=== PATIENT | female | born 1970 | race Caucasian/White ===

== ENCOUNTER → 2018-02-10 14:41 | Outpatient (CLI) | payer OTHER, SELFPAY ==
[2018-02-10 15:08] LABS: Basophils # 0.1 K/mm3 (0-0.2); Basophils % 0.7 % (0.1-2.0); Eosinophils # 0.1 K/mm3 (0.0-0.4); Eosinophils % 1.1 % (0.1-12.0); Hematocrit 50.3 % (37.0-47.0); Hemoglobin 16.4 g/dL (12.2-16.2); Lymphocytes # 2.3 K/mm3 (0.7-4.5); Lymphocytes % 24.7 K/mm3 (10-50); Mean Corpuscular HGB Conc 32.6 g/dL (31.8-35.4); Mean Corpuscular Hemoglobin 33.6 pg (27.0-31.2); Mean Corpuscular Volume 103.1 fl (81-99); Mean Platelet Volume 8.6 fl (7.4-10.4); Monocytes # 0.7 K/mm3 (0.1-1.0); Monocytes % 7.2 % (1.7-9.3); Neutrophils # 6.1 K/mm3 (1.8-7.8); Neutrophils % 66.4 % (37.0-80.0); Platelet Count 162 K/mm3 (142-424); Red Blood Count 4.88 M/mm3 (4.20-5.40); Red Cell Distribution Width 13.2 % (11.5-17.5); White Blood Count 9.1 K/mm3 (4.8-10.8)
[2018-02-10 15:38] LABS: Alanine Aminotransferase 30 U/L (12-78); Albumin/Globulin Ratio 1.3 (1.1-1.8); Alkaline Phosphatase 78 U/L (46-116); Anion Gap 9.9 mEq/L (5-15); Aspartate Amino Transferase 22 U/L (15-37); Bilirubin,Total 0.6 mg/dL (0.2-1.0); Blood Urea Nitrogen 15 mg/dL (7-18); Calcium 8.7 mg/dL (8.5-10.1); Carbon Dioxide 29 mmol/L (21.0-32.0); Chloride 102 mmol/L (98-107); Creatinine,Serum 0.81 mg/dL (0.55-1.02); Estimated Glomerular Filt Rate 76 ml/min (>60); GFR (African American) 93 ML/MIN (>60); Glucose 88 mg/dL (74-106); Potassium 3.9 mmoL/L (3.5-5.1); Sodium 137 mmol/L (136-145)
[2018-02-12 10:15] LABS: Hep B Surface Ab, Qual Non Reactive (.); Hepatitis C Antibody <0.1 s/co ratio (0.0-0.9)
[2018-02-13 09:01] LABS: HIV Screen 4th Generation wRfx Non Reactive (Non Reactive)
== END ==
PROVIDERS: Visit Provider Preventive Medicine Addiction Medicine
DX: F19.21 Other psychoactive substance dependence, in remission (principal)
CPT/HCPCS: 36415; 80053; 80076; 85025; 86703; 86706; 87380; G0432

== ENCOUNTER 2020-12-16 10:02 | Observation (INO) | payer SELFPAY ==
[2020-12-16] VITALS (9 sets, daily range): BP systolic 149–210; BP diastolic 72–108; PULSE 54–88; RESP 9–24; TEMP 36.5–36.9; O2SAT 95–99; BMI 33.6; BMI 30.4
--- NOTE | 2020-12-16 10:17 | ECG_ITS ---
APPROVED REPORT Exam: Resting ECG HR:82 bpm ECG Measurements Heart Rate 82 AXES WV 148 P 48 QRSd 92 QRS 7 QT 368 T 99 QTc 429 Conclusion Normal sinus rhythm ST & T wave abnormality, consider lateral ischemia Abnormal ECG Electronically signed by : Kendrick Mathew MD 12/16/2020 21:12:49
--- NOTE | 2020-12-16 10:21 | HMH.EDGENADL ---
ED Disposition Clinical Impression: Angina pectoris Hypertension Qualifiers: Hypertension type: unspecified Qualified Code(s): I10 - Essential (primary) hypertension Disposition: Admitted as Observation Condition on Discharge: Fair - Critical Care Critical Care Time: No Attestation: On 12/16/20, the high probability of a clinically significant, sudden or life threatening deterioration of the following system(s) required my full and direct attention, intervention and personal management. The time I documented below is in addition to time spent performing reported procedures but includes the following listed in this critical care notation. Medical Decision Making - Ronak Inquiry Pt receiving controlled substance: No Vital Signs: 12/16/20 10:04 12/16/20 10:31 12/16/20 10:46 Temperature 97.9 F Temperature Source Oral Pulse Rate 82 70 Pulse Rate [Left] 88 Respiratory Rate 18 11 L 11 L Blood Pressure 183/89 H Blood Pressure [Right Arm] 210/108 H Blood Pressure Mean 131 Blood Pressure Mean [Right Arm] 142 02 Sat by Pulse Oximetry 99 99 95 Oxygen Delivery Method Room Air - Lab Data Lab Results 12/16/20 10:18: WBC 6.2, RBC 5.58 H, Hgb 18.8 H, Hct 57.0 H, MCV 102.1 H, MCH 33.7 H, MCHC 33.0, RDW 12.5, Plt Count 153, MPV 8.7, Neut % (Auto) 63.0, Lymph % (Auto) 25.5, [place] % (Auto) 9.5 H, Eos % (Auto) 1.1, Baso % (Auto) 0.9, Neut # (Auto) 3.9, Lymph # (Auto) 1.6, [place] # (Auto) 0.6, Eos # (Auto) 0.1, Baso # (Auto) 0.1 12/16/20 10:18: Sodium 142, Potassium 3.8, Chloride 102, Carbon Dioxide 30, Anion Gap 13.8, BUN 23 H, Creatinine 0.90, Estimated Creat Clear 118, Estimated GFR 67, Est GFR ( Amer) 81, Glucose 140 H, Calcium 9.4, Total Bilirubin 1.1, AST 40 H, ALT 34, Alkaline Phosphatase 91, Troponin I < 0.01, Total Protein 8.3 H, Albumin 4.7, Globulin 3.6 H, Albumin/Globulin Ratio 1.3 12/16/20 12:15: SARS-CoV-2 (PCR) Not detected, Influenza A Untype (PCR) Not detected, Influenza Type B (PCR) Not detected Result diagrams: 12/16/20 10:18 12/16/20 10:18 Orders (Tests/Meds): ED MEDICATIONS Generic Name Dose Route Start Last Admin Trade Name Bill PRN Reason Stop Dose Admin Acetaminophen 650 mg 12/16/20 15:55 Acetaminophen 325mg Tab PO 01/15/21 15:54 Q4HP PRN Fever or Mild Pain Aspirin 81 mg 12/17/20 09:00 Aspirin Ec 81mg Tablet PO 01/16/21 08:59 DAILY SIDDHARTH Buprenorphine/Naloxone each 12/17/20 09:00 Buprenorphine/Naloxone 8mg/2mg Odt SL 01/16/21 08:59 DAILY SIDDHARTH Enoxaparin Sodium 100 mg 12/16/20 23:45 Enoxaparin 100mg/Ml Syringe 1 mg/kg (100 mg) 01/15/21 11:44 SQ Q12H SIDDHARTH Hydralazine HCl 5 mg 12/16/20 15:55 Hydralazine 20mg/Ml Vial IV 01/15/21 15:54 Q4HP PRN Blood Pressure - High Lisinopril 5 mg 12/17/20 09:00 Lisinopril 5mg Tablet PO 01/15/21 14:47 DAILY SIDDHARTH Metoprolol Tartrate 50 mg 12/16/20 21:00 Metoprolol Tartrate 50mg Tablet PO 01/15/21 11:44 BID SIDDHARTH Nitroglycerin 1 gm 12/16/20 17:45 Nitroglycerin 1 Gm Ointment TD 01/15/21 11:44 Q6H SIDDHARTH Ondansetron HCl 4 mg 12/16/20 15:55 Ondansetron 4mg/2ml Vial IV 01/15/21 15:54 Q8HP PRN Nausea Discontinued Medications Generic Name Dose Route Start Last Admin Trade Name Bill PRN Reason Stop Dose Admin Aspirin 324 mg 12/16/20 10:30 12/16/20 10:40 Aspirin 81mg Chewable Tablet PO 12/16/20 10:31 324 mg ONCE ONE Administration Enoxaparin Sodium 100 mg 12/16/20 11:45 12/16/20 11:55 Enoxaparin 100mg/Ml Syringe 1 mg/kg (100 mg) 01/15/21 11:44 100 mg SQ Administration Q12H SIDDHARTH Lisinopril 5 mg 12/16/20 14:48 12/16/20 15:57 Lisinopril 5mg Tablet PO 01/15/21 14:47 5 mg DAILY SIDDHARTH Administration Metoprolol Tartrate 5 mg 12/16/20 10:31 12/16/20 10:40 Metoprolol Tartrate 5mg/5ml Vial IV 12/16/20 10:32 5 mg ONCE ONE Administration Metoprolol Tartrate 50 mg 12/16/20 11:45 08
--- NOTE | 2020-12-16 10:31 | XR_ITS ---
PROCEDURE INFORMATION: Exam: XR Chest Exam date and time: 12/16/2020 10:31 AM Age: 50 years old Clinical indication: Sternal or substernal pain; Patient HX: Chest pain , high blood pressure , smoker TECHNIQUE: Imaging protocol: XR of the chest. Views: 1 view. COMPARISON: CR CXR CHEST(2 VIEWS-NOT PORTABLE) 02/01/2014 2:36 PM FINDINGS: Lungs: Unremarkable. No consolidation. Pleural spaces: Unremarkable. No pleural effusion. No pneumothorax. Heart/Mediastinum: Unremarkable. No cardiomegaly. Bones/joints: Unremarkable. IMPRESSION: No acute findings.
[2020-12-16 10:40] LABS: Basophils # 0.1 K/mm3 (0-0.2); Basophils % 0.9 % (0.1-2.0); Eosinophils # 0.1 K/mm3 (0.0-0.4); Eosinophils % 1.1 % (0.1-12.0); Lymphocytes # 1.6 K/mm3 (0.7-4.5); Lymphocytes % 25.5 % (10-50); Mean Corpuscular Hemoglobin 33.7 pg (27.0-31.2); Mean Corpuscular Volume 102.1 fl (81-99); Mean Platelet Volume 8.7 fl (7.4-10.4); Monocytes # 0.6 K/mm3 (0.1-1.0); Monocytes % 9.5 % (1.7-9.3); Neutrophils # 3.9 K/mm3 (1.8-7.8); Platelet Count 153 K/mm3 (142-424); Red Blood Count 5.58 M/mm3 (4.20-5.40); Red Cell Distribution Width 12.5 % (11.5-17.5); White Blood Count 6.2 K/mm3 (4.8-10.8)
[2020-12-16 10:41] LABS: Chloride 102 mmol/L (98-107)
[2020-12-16 10:42] LABS: Potassium 3.8 mmoL/L (3.5-5.1); Sodium 142 mmol/L (136-145)
[2020-12-16 10:44] LABS: Alanine Aminotransferase 34 U/L (12-78); Aspartate Amino Transferase 40 U/L (14-36); Blood Urea Nitrogen 23 mg/dl (7-17); Creatinine Clearance Estimated 118 mL/min (50-200); Estimated Glomerular Filt Rate 67 ml/min (>60); GFR (African American) 81 ML/MIN (>60)
[2020-12-16 10:45] LABS: Albumin Level 4.7 g/dl (3.5-5.0); Albumin/Globulin Ratio 1.3 (1.1-1.8); Alkaline Phosphatase 91 U/L (38-126); Anion Gap 13.8 mEq/L (5-15); Bilirubin,Total 1.1 mg/dl (0.2-1.3); Calcium 9.4 mg/dl (8.4-10.2); Carbon Dioxide 30 mmol/L (22.0-30.0); Globulin 3.6 g/dL (1.3-3.2); Glucose 140 mg/dl (74-100); Total Protein,Serum 8.3 g/dl (6.3-8.2)
[2020-12-16 10:56] LABS: Hemoglobin 18.8 g/dL (12.2-16.2)
[2020-12-16 11:00] LABS: Troponin I < 0.01 ng/ml (0.00-0.034)
--- NOTE | 2020-12-16 11:06 | PC.NURSE ---
service Dr arellano
--- NOTE | 2020-12-16 11:07 | PC.NURSE ---
Dr Roman returned call
--- NOTE | 2020-12-16 11:20 | PC.NURSE ---
cardiology returned call
[2020-12-16 12:20] LABS: Coronavirus 19, PCR Not Detected (NotDetected); Influenza A, PCR Not Detected (NotDetected); Influenza B, PCR Not Detected (NotDetected)
--- NOTE | 2020-12-16 12:50 | PC.NURSE ---
report called to SHERIDAN Reilly
--- NOTE | 2020-12-16 13:30 | PC.NURSE ---
pt arrived to the floor at this time
--- NOTE | 2020-12-16 14:33 | HMH.HP ---
*Admission Date: 12/16/20 *Chief complaint: Headache, chest pain, high blood pressure *History of present illness: This 50-year-old white female without a primary care physician presented to the emergency room [facility]. She states that she has been feeling quite poorly over the past 5 days. She is suffered from elevated blood pressure headache and some chest discomfort. Her eyes have been bloodshot. Her [id number] checked her blood pressure with a home device and it was shown to be quite elevated. Patient smokes 1/2 packs of cigarettes per day. 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 Colostomy was reversed), Hernia Repair (Umbilical), Other (BTL). 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 2 brothers in good health) : 2 Para: 2 A: 0 LMP comments: post menopausal Review of Systems - Constitutional Reports headache(s), Denies body ache(s), Denies chills - Eyes Reports blurry vision, Reports change in vision, Reports irritation - ENT Denies abnormal hearing - *Cardiovascular Reports chest pain at rest, Denies shortness of breath, Denies rapid, pounding, or irregular heartbeat, Denies radiating jaw, neck or arm pain - *Respiratory Denies chest congestion, Denies cough - *Gastrointestinal Denies abdominal pain - *Genitourinary Reports absent period - *Musculoskeletal Denies joint swelling - Integumentary/Breasts Denies changing lesions, Denies yellowing of the skin - *Neurologic Reports headache(s), Denies abnormal walking, Denies abnormal speech, Denies confusion, Denies numbness, Denies weakness - Psychiatric Reports anxiety - Endocrine Denies cold intolerance - Hematologic/Lymphatic Denies easy bleeding - Allergic/Immunologic Reports itchy eyes, Denies wheezing Meds Home Medications Medication Instructions Recorded Confirmed Type Buprenorphine HCl/Naloxone HCl 8 mg PO DAILY 12/16/20 12/16/20 History [Suboxone 8mg/2mg ODT] Allergies Allergy/AdvReac Type Severity Reaction Status Date / Time latex [LATEX] Allergy Unknown I-RASH Verified 12/16/20 10:39 Exam Vital signs and Labs for Last 24 Hours: Temp Pulse Resp BP Pulse Ox 97.7 F 54 L 10 L 159/80 H 95 12/16/20 13:59 12/16/20 13:59 12/16/20 13:59 12/16/20 13:59 12/16/20 10:46 Laboratory Results - last 24 hr 12/16/20 10:18: WBC 6.2, RBC 5.58 H, Hgb 18.8 H, Hct 57.0 H, MCV 102.1 H, MCH 33.7 H, MCHC 33.0, RDW 12.5, Plt Count 153, MPV 8.7, Neut % (Auto) 63.0, Lymph % (Auto) 25.5, [place] % (Auto) 9.5 H, Eos % (Auto) 1.1, Baso % (Auto) 0.9, Neut # (Auto) 3.9, Lymph # (Auto) 1.6, [place] # (Auto) 0.6, Eos # (Auto) 0.1, Baso # (Auto) 0.1 12/16/20 10:18: Sodium 142, Potassium 3.8, Chloride 102, Carbon Dioxide 30, Anion Gap 13.8, BUN 23 H, Creatinine 0.90, Estimated Creat Clear 118, Estimated GFR 67, Est GFR ( Amer) 81, Glucose 140 H, Calcium 9.4, Total Bilirubin 1.1, AST 40 H, ALT 34, Alkaline Phosphatase 91, Troponin I < 0.01, Total Protein 8.3 H, Albumin 4.7, Globulin 3.6 H, Albumin/Globulin Ratio 1.3 12/16/20 12:15: SARS-CoV-2 (PCR) Not det
[2020-12-16 16:15] LABS: Troponin I < 0.01 ng/ml (0.00-0.034)
[2020-12-16 19:28] LABS: Troponin I < 0.01 ng/ml (0.00-0.034)
[2020-12-17] VITALS (9 sets, daily range): BP systolic 145–164; BP diastolic 67–82; PULSE 40–59; RESP 16–22; TEMP 36.3–36.9; O2SAT 96–98; BMI 30.4
--- NOTE | 2020-12-17 03:22 | PC.NURSE ---
Patient is A&Ox4. No complaints of chest pain. VSS. Ambulated independently to bathroom no further concerns noted.
[2020-12-17 08:34] LABS: Basophils # 0.1 K/mm3 (0-0.2); Basophils % 0.9 % (0.1-2.0); Eosinophils # 0.1 K/mm3 (0.0-0.4); Hematocrit 50.4 % (37.0-47.0); Lymphocytes # 1.9 K/mm3 (0.7-4.5); Lymphocytes % 31.5 % (10-50); Mean Corpuscular HGB Conc 33.4 g/dL (31.8-35.4); Mean Corpuscular Hemoglobin 33.4 pg (27.0-31.2); Mean Corpuscular Volume 100.1 fl (81-99); Mean Platelet Volume 9.6 fl (7.4-10.4); Monocytes # 0.5 K/mm3 (0.1-1.0); Neutrophils # 3.6 K/mm3 (1.8-7.8); Neutrophils % 58.6 % (37.0-80.0); Platelet Count 167 K/mm3 (142-424); Red Blood Count 5.03 M/mm3 (4.20-5.40); Red Cell Distribution Width 13.1 % (11.5-17.5); White Blood Count 6.2 K/mm3 (4.8-10.8)
[2020-12-17 08:36] LABS: Chloride 105 mmol/L (98-107); Sodium 142 mmol/L (136-145)
[2020-12-17 08:37] LABS: Potassium 3.7 mmoL/L (3.5-5.1)
[2020-12-17 08:39] LABS: Alanine Aminotransferase 27 U/L (12-78); Alkaline Phosphatase 72 U/L (38-126); Anion Gap 7.7 mEq/L (5-15); Aspartate Amino Transferase 35 U/L (14-36); Bilirubin,Total 0.8 mg/dl (0.2-1.3); Blood Urea Nitrogen 21 mg/dl (7-17); Carbon Dioxide 33 mmol/L (22.0-30.0); Creatinine Clearance Estimated 106 mL/min (50-200); Estimated Glomerular Filt Rate 67 ml/min (>60); GFR (African American) 81 ML/MIN (>60); Total Protein,Serum 7.1 g/dl (6.3-8.2)
[2020-12-17 08:40] LABS: Glucose 102 mg/dl (74-100); Hemoglobin 16.8 g/dL (12.2-16.2)
[2020-12-17 08:48] LABS: Albumin Level 4.1 g/dl (3.5-5.0); Albumin/Globulin Ratio 1.4 (1.1-1.8)
--- NOTE | 2020-12-17 09:04 | ECG_ITS ---
APPROVED REPORT Exam: Resting ECG HR:55 bpm ECG Measurements Heart Rate 55 AXES ND 140 P 37 QRSd 82 QRS 11 QT 422 T 172 QTc [address] & T wave abnormalities noted, seems to be resolving from EKG of yesterday Abnormal ECG Electronically signed by : Kendrick Mathew MD 12/18/2020 18:04:04
--- NOTE | 2020-12-17 09:32 | HMH.ACPN2 ---
Internal Medicine - PN: Subj *Date: 12/17/20 *Time: 09:32 Interval history: She is comfortable and states that she feels better than she did on admission. Her blood pressures have improved dramatically. She is not having chest pain. Her troponins were negative. Her electrolytes remain normal. Exam Vital signs and Labs for Last 24 Hours: Temp Pulse Resp BP Pulse Ox 98.5 F 53 L 18 149/71 H 97 12/17/20 07:23 12/17/20 07:23 12/17/20 07:23 12/17/20 07:23 12/17/20 07:23 Laboratory Results - last 24 hr 12/16/20 10:18: WBC 6.2, RBC 5.58 H, Hgb 18.8 H, Hct 57.0 H, MCV 102.1 H, MCH 33.7 H, MCHC 33.0, RDW 12.5, Plt Count 153, MPV 8.7, Neut % (Auto) 63.0, Lymph % (Auto) 25.5, [place] % (Auto) 9.5 H, Eos % (Auto) 1.1, Baso % (Auto) 0.9, Neut # (Auto) 3.9, Lymph # (Auto) 1.6, [place] # (Auto) 0.6, Eos # (Auto) 0.1, Baso # (Auto) 0.1 12/16/20 10:18: Sodium 142, Potassium 3.8, Chloride 102, Carbon Dioxide 30, Anion Gap 13.8, BUN 23 H, Creatinine 0.90, Estimated Creat Clear 118, Estimated GFR 67, Est GFR ( Amer) 81, Glucose 140 H, Calcium 9.4, Total Bilirubin 1.1, AST 40 H, ALT 34, Alkaline Phosphatase 91, Troponin I < 0.01, Total Protein 8.3 H, Albumin 4.7, Globulin 3.6 H, Albumin/Globulin Ratio 1.3 12/16/20 12:15: SARS-CoV-2 (PCR) Not detected, Influenza A Untype (PCR) Not detected, Influenza Type B (PCR) Not detected 12/16/20 15:45: Troponin I < 0.01 12/16/20 19:00: Troponin I < 0.01 12/17/20 08:17: WBC 6.2, RBC 5.03, Hgb 16.8 H D, Hct 50.4 H, MCV 100.1 H, MCH 33.4 H, MCHC 33.4, RDW 13.1, Plt Count 167, MPV 9.6, Neut % (Auto) 58.6, Lymph % (Auto) 31.5, [place] % (Auto) 8.0, Eos % (Auto) 1.0, Baso % (Auto) 0.9, Neut # (Auto) 3.6, Lymph # (Auto) 1.9, [place] # (Auto) 0.5, Eos # (Auto) 0.1, Baso # (Auto) 0.1 12/17/20 08:17: Sodium 142, Potassium 3.7, Chloride 105, Carbon Dioxide 33 H, Anion Gap 7.7, BUN 21 H, Creatinine 0.90, Estimated Creat Clear 106, Estimated GFR 67, Est GFR ( Amer) 81, Glucose 102 H D, Calcium 9.0, Total Bilirubin 0.8, AST 35, ALT 27, Alkaline Phosphatase 72, Total Protein 7.1, Albumin 4.1 D, Globulin 3.0, Albumin/Globulin Ratio 1.4 I & O for Last 24 hours: Intake & Output 12/14/20 12/15/20 12/16/20 12/17/20 11:59 11:59 11:59 11:59 Intake Total 1080 / 1080 Balance 1080 / 1080 Weight 215 lb 194 lb 3 oz - Constitutional no acute distress - *Routine HEENT Exam Head: Present: normocephalic Eye: Present: PERRL ENT: Present: mucous membranes moist - *Routine Neck Exam Absent: JVD - Routine Chest/Breast/Axilla Exam Chest wall: Absent: tenderness - *Routine Respiratory Exam Present: decreased breath sounds, rhonchi (Some scattered) - *Routine Cardiovascular Exam Present: RRR. Absent: ectopic - *Routine Abdominal Exam Present: soft. Absent: tenderness - *Routine Extremities Exam Present: edema (Minimal) - *Routine Skin Exam Present: intact, warm. Absent: rash - *Routine Neurological Exam Present: alert, oriented X3 Assessment and Plan (1) Angina pectoris Status: Acute Category: Medical Code(s): I20.9 - Angina pectoris, unspecified (2) Hypertensive cardiovascular disease Status: Acute Category: Medical Code(s): I11.9 - Hypertensive heart disease without heart failure (3) Hypertension Status: Acute Qualifiers: Hypertension type: unspecified Qualified Code(s): I10 - Essential (primary) hypertension Category: Medical Code(s): I10 - Essential (primary) hypertension (4) Tobacco abuse Status: Acute Category: Medical Code(s): Z72.0 - Tobacco use - Assessment and plan all Dx Assessment and Plan for all problems:: N.p.o. after midnight pending cardiology evaluation. We discussed Myoview GXT versus heart catheterization.
--- NOTE | 2020-12-17 12:18 | P.CONPHA_ITS ---
[facility] Pharmacy VTE Monitoring - Patient Demographics Admission date: 12/16/20 Report Date: 12/17/20 Time: 12:18 Allergies/Adverse Reactions: Patient Allergies latex [LATEX] Allergy (Unknown, Verified 12/16/20 10:39) I-RASH Height: 1.7 m Weight: 88.082 kg Patient Problems: Current Active Problems Angina pectoris (Acute) Hypertension (Acute) Hypertensive cardiovascular disease (Acute) Tobacco abuse (Acute) - VTE Risk Labs: VTE Related Lab Results Hgb 16.8 g/dL (12.2-16.2) H D 12/17/20 08:17 Hct 50.4 % (37.0-47.0) H 12/17/20 08:17 Plt Count 167 K/mm3 (142-424) 12/17/20 08:17 BUN 21 mg/dl (7-17) H 12/17/20 08:17 Creatinine 0.90 mg/dl (0.52-1.04) 12/17/20 08:17 Estimated Creat Clear 106 mL/min (50-200) 12/17/20 08:17 VTE Score: 1 - Prophylaxis VTE Prophylaxis Ordered?: Yes Types of VTE Prophylaxis: TEDS Knee High, Pharmacological Location of Applied Device: Bilateral Lower Extremeties Pharmacologic Type: Enoxaparin
--- NOTE | 2020-12-17 12:18 | HMH.PHAINT ---
MEDICATION RECONCILIATION COMPLETED ON PATIENT USING ZAIRE REPORT FOR SUBOXONE AND PATIENT INTERVIEW. -CARLOS AGUERO, CARYND
--- NOTE | 2020-12-17 16:29 | PC.NURSE ---
PT IS RESTING IN BED. NO COMPLAINTS OF CHEST PAIN OR SOA. EATING AND DRINKING WELL. SINUS ABRAHAM ON TELEMETRY. TOLERATING TAKING A SHOWER THIS SHIFT. AMBULATING TO THE BATHROOM AND AROUND THE ROOM. PT WILL BE NPO AFTER MIDNIGHT FOR CARDIOLOGY CONSULT. VSS. WILL CONTINUE TO MONITOR.
--- NOTE | 2020-12-17 22:22 | PC.NURSE ---
SPOKE WITH DR ALMANZA AT 2124. PATIENT COMPLAINS OF CHEST PAIN AND REQUESTS NITRO. NITRO PASTE WAS NOT DUE UNTIL 2344 AND VERIFIED IF IT WAS OK TO ADMINISTER EARLY. DR ALMANZA GAVE OK TO ADMINISTER EARLY. PATIENT ALSO HAD METOPROLOL ORDERED BUT HEART RATE WAS BETWEEN 50-56. DR ALMANZA ALSO NOTIFIED OF HEART RATE AND HE STILL WANTS METOPROLOL ADMINISTERED. SEE MAR FOR ADMINISTRATION TIMES. NO FURTHER CONCERNS NOTED,
[2020-12-18] VITALS (15 sets, daily range): BP systolic 124–164; BP diastolic 46–85; PULSE 40–56; RESP 16–20; TEMP 36.5–36.7; O2SAT 94–99
--- NOTE | 2020-12-18 | CA_ITS ---
APPROVED REPORT Exam: Pharmacologic Technologist: Yamini Maria, Ht: 5 ft 6 in Wt: 176 lbs BSA: 1.89 m2 HR: 49 bpm BP: 184/87 mmHg Medical History Medications: Lisinopril,,,,, Aspirin,,,,, Suboxone,,,,, Metroprolol,,,,, Stress Test Details Test: LEXISCAN HR Resting HR: 47 bpm Max Heart Rate (APMHR): 172.293492 bpm Max HR Achieved: 83 bpm Target HR (85% APMHR): 146.416842 bpm % of APMHR: 48.26 Recovery HR: 58 bpm BP Resting BP: 184/87 mmHg Max BP: 195/93 mmHg Recovery BP: 173.0/84.0 mmHg ECG Resting ECG: NSR, Inferior STT abnormalities-Strain pattern Clinical Reason for Termination: Completed Protocol Exercise duration: 04:01 min Highest Stage Achieved: Stress ECG Conclusion Symptoms: No CP Arrhythmias/Ectopy: None ST-T Changes: <1.[address] segment changes Conclusion: Non-Diagnostic Test Summary REST . . . . . . . Resting REST 01:46 . . 47 . 184/ 87 . . Stage 1 01:00 . . 73 . . . . Stage 2 01:00 . . 77 . 195/ 93 . . Stage 3 01:00 . . 75 . . . . Stage 4 01:00 . . 68 . 184/ 83 . . Stage 4 01:01 . . 67 . 184/ 83 . Stop exercise at 04:01 RECOVERY 01:00 . . 73 . 184/ 80 . . RECOVERY 02:00 . . 60 . 184/ 80 . . RECOVERY 02:52 . . 61 . 173/ 84 . . Electronically signed by : Yobany Edmonds MD 12/18/2020 18:08:36
--- NOTE | 2020-12-18 | IR_ITS ---
APPROVED REPORT Patient Location: Inpatient Play Leader: BERNIE Jesus RT (R) PROCEDURES Left heart catheterization Left ventriculogram Selective coronary angiogram INDICATION Chest pain, Abnormal stress test Informed consent was obtained prior to the procedure. COMPLICATIONS None Estimated Blood Loss: Less than 10 mls TECHNIQUE One percent lidocaine used to anesthetize the right anterior aspect of the wrist. The right radial artery was accessed via the Seldinger technique. A 6 [place] sheath was placed in the right radial artery. 2.5 mg of verapamil, 800 mcg of nitroglycerin, 1mg Lidocaine and 5000 U Heparin were given through the arterial sheath. The trap catheter was also used to perform left heart catheterization, left ventriculogram and selective coronary angiogram. At the end of the procedure the sheath was removed good hemostasis was achieved using Traclet band, patient was transferred to the postop holding area in stable condition. ANGIOGRAPHIC RESULTS The left main artery Normal The left anterior descending artery Normal The right coronary artery Dominant normal The [facility] ventriculogram reveals Preserved 55 to 60% The left ventricular end-diastolic pressure 15 mmHg IMPRESSION Normal coronary arteries Preserved ejection fraction Borderline elevated LVEDP PLAN 1. Medical management Electronically signed by : Terrance Avelar MD 12/18/2020 14:02:56
--- NOTE | 2020-12-18 03:00 | PC.NURSE ---
Patient is A&Ox4. Complained of some chest discomfort at beginning of shift and nitro was applied. Patient did letitia down to 36-37 at times but heart rate came back up to upper 40's lower 50's and was asymptomatic. VSS otherwise. Ambulated to bathroom independently. patient is npo for cardiology consult. no further concerns noted.
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
--- NOTE | 2020-12-18 07:40 | NM_ITS ---
APPROVED REPORT Exam: Nuclear Stress Test Indication: Chest pain, HTN, Tobacco use Patient Location: Inpatient Stress Tech: Yamini Maria [place] Tech:Yamile Tovar ARRT, RT (R)(N) Ht: 5 ft 7 in Wt: 210 lbs Bra Size: 42B HR: 49 bpm BP: 184/87 mmHg BSA: 2.07 m2 BMI: 32.8 History: Chest pain, HTN, Tobacco use Procedure: Patient received a 0.4 mg of intravenous Lexiscan, resting heart rate 49 bpm, resting blood pressure 184/87 mmHg, with Lexiscan maximum heart rate achived was 77 bpm which is % of the maximum predicted heart rate and blood pressure was 195/93 mmHg. With Lexiscan, patient denied any complaint of chest pain. Cardiac Stress and Resting SPECT Images: Cardiac Stress and Resting SPECT images were obtained using technetium 99m Myoview 32.7 mCi stress and 10.10 mCi at rest. EF low at 44% with global hypokinesia most prominent at the inferior wall and apex Reversible defect at the inferior wall towards the apex c/w ischemia. No fixed defects Conclusion: EF low at 44% with global hypokinesia most prominent at the inferior wall and apex Reversible defect at the inferior wall towards the apex c/w ischemia. No fixed defects Electronically signed by : Marco Hooper MD 12/18/2020 11:20:52
--- NOTE | 2020-12-18 10:14 | SW/DCPLANNER ---
I have emailed Sudarshan Todd for this patient regarding self pay status.
--- NOTE | 2020-12-18 11:01 | HMH.ACPN2 ---
Internal Medicine - PN: Subj *Date: 12/18/20 *Time: 11:01 Interval history: Pt was seen prior to leaving floor for her stress test. She denied CP, SOB , and stomach issues; She was eating well and ambulating without difficulty. Exam Vital signs and Labs for Last 24 Hours: Temp Pulse Resp BP Pulse Ox 97.8 F 50 L 16 135/68 95 12/18/20 08:00 12/18/20 08:00 12/18/20 08:00 12/18/20 08:00 12/18/20 08:00 I & O for Last 24 hours: Intake & Output 12/15/20 12/16/20 12/17/20 12/18/20 11:59 11:59 11:59 11:59 Intake Total 1080 / 1080 1210 / 1210 Balance 1080 / 1080 1210 / 1210 Weight 215 lb 194 lb 3 oz - Constitutional no acute distress Comments: appears comfortable in wheelchair ready to leave to go for stress test - *Routine Respiratory Exam Present: CTA bilaterally (A&P) - *Routine Cardiovascular Exam Present: RRR - *Routine Abdominal Exam Present: soft, normoactive bowel sounds. Absent: tenderness - *Routine Extremities Exam Absent: edema, calf tenderness - *Routine Neurological Exam Present: alert, oriented X3 Assessment and Plan (1) Angina pectoris Status: Acute Category: Medical Code(s): I20.9 - Angina pectoris, unspecified (2) Hypertensive cardiovascular disease Status: Acute Category: Medical Code(s): I11.9 - Hypertensive heart disease without heart failure (3) Hypertension Status: Acute Qualifiers: Hypertension type: unspecified Qualified Code(s): I10 - Essential (primary) hypertension Category: Medical Code(s): I10 - Essential (primary) hypertension (4) Tobacco abuse Status: Acute Category: Medical Code(s): Z72.0 - Tobacco use - Assessment and plan all Dx Assessment and Plan for all problems:: Has been seen by cardiology and is having stress test this AM
[2020-12-18 12:39] LABS: HCG Qualitative, Serum Negative (Negative)
--- NOTE | 2020-12-18 15:55 | CA_ITS ---
APPROVED REPORT EXAM: Comprehensive 2D, Doppler, and color-flow Echocardiogram Genetic Physician: Nereida Mejia CRT Ht: 5 ft 7 in Wt: 194lbs BSA: 2.00 BP: 149/71 mmHg Indications: Chest Pain, Hypertension/HDD, smoker 2D Dimensions LVOT 2.04 cm (M/F) 1.5-2.5 LA Volume 52.20 mL LA Volume Index 26.10 mL/m2 (M/F) 16-34 M-Mode Dimensions RVDd 2.62 cm (0.9-2.6) LA Diam 4.52 cm (1.9-4.0) LVDd 5.70 cm (3.5-5.7) Ao Diam 3.56 cm (2.0-3.7) LVDs 3.76 cm (3.5-5.7) IVSd 1.29 cm (0.6-1.1) PWd 0.84 cm (0.6-1.1) EF (Teich) 62.30% FS 34.00% EDV (Teich) 160.00 mL ESV (Teich) 60.40 mL LV Diastology E Decel Time 257.00 (160-240 msec) E/A Ratio 1.63 MED E' 6.50 (< 7 cm/sec) MED A' 3.90 cm/s E'/MED E' Ratio 14.48 (>14) LAT E' 8.10 (<10 cm/sec) LAT A' 4.90 cm/s E/LAT E' Ratio 11.62 (>14) Aortic Valve LVOT Max 129.00 (70-110 cm/s) LVOT VTI 29.91 cm AoV Peak Jagdish. 156.00 (50-130 cm/s) AI PHT 711.00 ms AO Peak GR. 10.00 mmHg AO Mean GR. 5.70 (<5 mmHg) AO VTI 36.65 (18-25 cm) LISA (VTI) 2.67 (2.5-4.5 cm2) Mitral Valve MV E Max Jagdish. 94.00 (40-130 cm/s) MV A Velocity 58.00 (40-130 cm/s) E/A Ratio 1.63 MV Decel. Time 257.00 (160-240 ms) MV PHT 75.00 ms Pulmonary Valve PV Peak Velocity 94.00 (50-150 cm/s) Tricuspid Valve TR P. Velocity 147.00 cm/s RAP Estimate 10.00 mmHg RVSP 18.60 mmHg Left Ventricle Left atrium is mildly enlarged, left ventricle is normal size, mild concentric left ventricular hypertrophy, visually estimated ejection fraction 55% with no regional wall motion abnormality, diastolic parameters are inconclusive. Right Ventricle Right atrium and right ventricle are normal size and contractility. Aortic Valve Aortic valve is minimally thickened and fibrosed, there is no aortic stenosis, there is mild aortic insufficiency. Mitral Valve Mitral valve is grossly normal, there is trace mitral regurgitation. Tricuspid Valve Tricuspid valve grossly normal, there is trace tricuspid regurgitation, tricuspid regurgitation jet velocity is inadequate for calculation of the right ventricular systolic pressure. Pulmonic Valve Pulmonic valve is poorly visualized. Great Vessels Aortic root is normal size. Pericardium No significant pericardial effusion noted. Conclusion 1. Mildly enlarged left atrium, normal left ventricular size, mild concentric left ventricular hypertrophy, visually estimated ejection fraction 55% with no regional wall motion abnormality, diastolic parameters are inconclusive. 2. Mild aortic, trace mitral and tricuspid regurgitation. 3. No significant pericardial effusion noted. Electronically signed by : Yobany Edmonds MD 12/18/2020 18:56:34
--- NOTE | 2020-12-19 15:46 | HMH.DCSUM ---
General - General Admission date:: 12/16/20 Discharge date: 12/18/20 HPI HPI: This 50-year-old white female without a primary care physician presented to the emergency room at [facility]. She states that she has been feeling quite poorly over the past 5 days. She is suffered from elevated blood pressure headache and some chest discomfort. Her eyes have been bloodshot. Her [id number] checked her blood pressure with a home device and it was shown to be quite elevated. Patient smokes 1/2 packs of cigarettes per day. She does not have a strong family history for heart disease Hospital Course Hospital Course: Cardiology was consulted. The patient's chest x-ray showed nothing acute. Her blood pressure did improve and she no longer had any chest pain. Her troponins were all negative. She was seen in consultation by cardiology and her preliminary echo showed an EF of greater than 50% with only mild valvular regurgitation. They recommended a Lexiscan Myoview due to her abnormal EKG on admission. Lexiscan Myoview showed an EF of 44% with global hypokinesia most prominent at the inferior wall and apex. There was a reversible defect of the inferior wall towards the apex consistent with ischemia, therefore they proceeded with a heart cath. Her heart cath showed normal coronaries with preserved LVEF. They felt she was stable to be discharged home on metoprolol succinate 25 mg in the evening and lisinopril 5 mg every morning. They wanted to follow-up with her in their office in 1 to 2 weeks. Objective Vital signs: Temp Pulse Resp BP Pulse Ox 98.1 F 55 L 16 162/68 H 99 12/18/20 16:15 12/18/20 17:15 12/18/20 17:15 12/18/20 17:15 12/18/20 17:15 Narrative: - Constitutional no acute distress (Anxious) - *Routine HEENT Exam Head: Present: normocephalic Eye: Present: PERRL ENT: Present: mucous membranes moist - *Routine Neck Exam Absent: JVD - Routine Chest/Breast/Axilla Exam Chest wall: Absent: tenderness - *Routine Respiratory Exam Present: CTA bilaterally - *Routine Cardiovascular Exam Present: RRR, S4 - *Routine Abdominal Exam Present: soft, normoactive bowel sounds, surgical scars, other (Intertrigo of the left groin). Absent: tenderness - *Routine Rectal Exam Rectal:: deferred - *Routine Genitalia Exam Genitalia:: deferred - *Routine Extremities Exam Absent: cyanosis, clubbing, edema - *Routine Skin Exam Present: intact - *Routine Neurological Exam Present: alert, oriented X3 DS: Diagnosis - Discharge Diagnosis (1) Angina pectoris Status: Acute (2) Hypertensive cardiovascular disease Status: Acute (3) Hypertension Status: Acute (4) Tobacco abuse Status: Acute Discharge Plan - Patient Discharge Instructions Patient Instructions: DI for Chest Pain - Follow up Plan Follow up with: Terrance Avelar MD [Staff Physician] - 01/02/21 2:30 pm Disposition: Home, Self-Care Condition at discharge:: Improved Home Medications: Home Medications Medication Instructions Recorded Confirmed Type Buprenorphine HCl/Naloxone HCl 2 tab PO DAILY 12/16/20 12/17/20 History [Suboxone 8mg/2mg ODT] Aspirin [Aspirin 81mg EC Tab] 81 mg PO DAILY tablet. 12/18/20 Rx Metoprolol Succinate [Toprol XL 25 mg PO DAILY #30 tab.er.24h 12/18/20 Rx 25mg tablet] lisinopriL [Zestril 5mg 5 mg PO DAILY #30 tab 12/18/20 Rx Tablet] Prescriptions/Medication Reconciliation: New Aspirin [Aspirin 81mg EC Tab] 81 mg PO DAILY tablet. Metoprolol Succinate [Toprol XL 25mg tablet] 25 mg PO DAILY #30 tab.er.24h lisinopriL [Zestril 5mg Tablet] 5 mg PO DAILY #30 tab Continued Buprenorphine HCl/Naloxone HCl [Suboxone 8mg/2mg ODT] 2 tab PO DAILY - Problem Reconciliation Problems Reviewed?: Yes
== END 2020-12-18 19:52 | disposition home or self-care (01) ==
LOC: ER 11:31 → 2ND 14:34
PROVIDERS: Internal Medicine; Admitting Provider Family Medicine; Emergency Provider Emergency Medicine; Visit Provider Family Medicine
DX: R07.9 Chest pain, unspecified (principal); Z20.822 Contact with and (suspected) exposure to COVID-19; I25.118 Atherosclerotic heart disease of native coronary artery with other forms of angina pectoris; I11.9 Hypertensive heart disease without heart failure; F17.210 Nicotine dependence, cigarettes, uncomplicated
CPT/HCPCS: 36415; 71045; 78452; 80053; 84484; 84703; 85025; 93005; 93017; 93306; 93458; 96374; 99152; 99282; A9502; C1725; C1769; G0378; J0574; J1644; J2785; Q9967; U0003

== ENCOUNTER → 2021-01-11 07:42 | Outpatient (CLI) | payer MEDICAID, SELFPAY ==
--- NOTE | 2021-01-11 07:43 | CA_ITS ---
APPROVED REPORT Copyright Expert: HAL Study Quality: Good, Due to body habitus. Indications: HTN Risk Factors Hypertension Smoking Renal Artery Doppler Origin (R) 128.0/ cm/sec Proximal (R) 154.2/ cm/sec Mid (R) 179.9/ cm/sec Distal (R) 122.3/ cm/sec Renal Aorta Ratio (R) 2.20 Segmental A. (R) / cm/sec RI: 0.67 Segmental A. Sup (R) 23.0/8.0 cm/sec Segmental A. Mid (R) 40.0/12.0 cm/sec Segmental A. Inf (R) 22.0/7.0 cm/sec Origin (L) 121.4/ cm/sec Proximal (L) 129.0/ cm/sec Mid (L) 211.6/ cm/sec Distal (L) 158.1/ cm/sec Renal Aorta Ratio (L) 2.61 Segmental A. (L) / cm/sec RI: 0.68 Segmental A. Sup (L) 42.0/14.0 cm/sec Segmental A. Mid (L) 38.0/12.0 cm/sec Segmental A. Inf (L) 28.0/9.0 cm/sec Renal Measurements Kidney Size (R) 11.6x4.9 cm Cortical Thickness (R) 1.0 cm Kidney Size (L) 10.8x4.9 cm Cortical Thickness (L) 1.2 cm Findings An attempt was made to evaluate the abdominal aorta, the right and left renal arteries and kidneys, utilizing duplex ultrasonography and color flow doppler. This was a technically difficult and therefore limited exam due to the presence of bowel gas and abdominal movement with respiration. The proximal abdominal aorta is patent without significant stenoses or dilatations. The bilateral renal arteries were demonstrate mid to distal tortouosity with increased velocities. Based on the renal/aortic ratio there is no evidence of significant stenosis in the bilateral renal arteries. Conclusion The proximal abdominal aorta is patent without significant stenoses or dilatations. The bilateral renal arteries were demonstrate mid to distal tortouosity with increased velocities. Based on the renal/aortic ratio there is no evidence of significant stenosis in the bilateral renal arteries. Electronically signed by : Macro Hooper MD 01/11/2021 16:00:54
[2021-01-11 08:48] LABS: Basophils # 0.1 K/mm3 (0-0.2); Basophils % 0.9 % (0.1-2.0); Eosinophils # 0.1 K/mm3 (0.0-0.4); Eosinophils % 1.5 % (0.1-12.0); Hematocrit 50.7 % (37.0-47.0); Hemoglobin 16.4 g/dL (12.2-16.2); Lymphocytes # 1.9 K/mm3 (0.7-4.5); Lymphocytes % 26.7 % (10-50); Mean Corpuscular HGB Conc 32.3 g/dL (31.8-35.4); Mean Corpuscular Hemoglobin 33.1 pg (27.0-31.2); Mean Corpuscular Volume 102.5 fl (81-99); Mean Platelet Volume 9.5 fl (7.4-10.4); Monocytes # 0.6 K/mm3 (0.1-1.0); Monocytes % 8.4 % (1.7-9.3); Neutrophils # 4.5 K/mm3 (1.8-7.8); Neutrophils % 62.6 % (37.0-80.0); Platelet Count 164 K/mm3 (142-424); Red Blood Count 4.95 M/mm3 (4.20-5.40); Red Cell Distribution Width 12.1 % (11.5-17.5); White Blood Count 7.2 K/mm3 (4.8-10.8)
[2021-01-11 09:45] LABS: Chloride 101 mmol/L (98-107); Potassium 4.1 mmoL/L (3.5-5.1); Sodium 141 mmol/L (136-145)
[2021-01-11 09:48] LABS: Anion Gap 14.1 mEq/L (5-15); Blood Urea Nitrogen 26 mg/dl (7-17); Carbon Dioxide 30 mmol/L (22.0-30.0); Estimated Glomerular Filt Rate 67 ml/min (>60); GFR (African American) 81 ML/MIN (>60)
[2021-01-11 09:49] LABS: Calcium 9.3 mg/dl (8.4-10.2); Glucose 94 mg/dl (74-100)
== END ==
PROVIDERS: Visit Provider Urology
DX: I11.9 Hypertensive heart disease without heart failure (principal); Z72.0 Tobacco use
CPT/HCPCS: 36415; 80048; 85025; 93976